=== PATIENT | female | born 1950 | race Caucasian/White ===

== ENCOUNTER 2020-02-17 06:49 | Inpatient (IN) | payer MEDICARE, MEDICAID ==
[~2020-02-17] VITALS: Ht 167.6 cm; Wt 68.0 kg
[2020-02-17 07:25] LABS: HEMATOCRIT. 32.9 % (36.0-48.0); HEMOGLOBIN. 11.7 g/dL (12.0-16.0); LYMPHOCYTES % 22.5 % (20.0-50.0); MEAN CORPUSCULAR HEMOGLOBIN 33.2 pg (28.0-32.0); MEAN CORPUSCULAR VOLUME 93.8 fL (81.0-99.0); MEAN PLATELET VOLUME 9.1 fl (7.4-10.4); MONOCYTES % 10.1 % (2.0-8.0); NEUTROPHILS % 63.4 % (40.0-76.0); PLATELET 73 x1000/uL (130-400); RED BLOOD CELL COUNT 3.51 mill/uL (4.2-5.4)
[2020-02-17 07:36] LABS: CHLORIDE 107 mEq/L (98-107)
[2020-02-17 07:44] LABS: ETHANOL BLOOD < 10 mg/dL
[2020-02-17 07:45] LABS: LDL CHOLESTEROL 67 mg/dL (5-100)
[2020-02-17 07:46] LABS: CREATINE KINASE 80 IU/L (26-192)
[2020-02-17 07:52] LABS: INR 1.3; PROTHROMBIN TIME 13.7 sec (9.6-11.0)
[2020-02-17 08:11] LABS: CLARITY URINE CLEAR (CLEAR); COLOR URINE YELLOW (YELLOW); KETONES URINE NEGATIVE (NEGATIVE); LEUKOCYTE ESTERASE URINE TRACE (NEGATIVE); NITRITE URINE NEGATIVE (NEGATIVE); OCCULT BLOOD URINE NEGATIVE (NEGATIVE); PH URINE 8.5 (4.5-8.0); PROTEIN URINE NEGATIVE (NEGATIVE); SPECIFIC GRAVITY URINE 1.011 (1.005-1.030); UROBILINOGEN URINE 0.2 E.U./dL (0.2-1.0)
[2020-02-17 08:30] LABS: *AMPHETAMINES SCREEN URINE NEGATIVE (NEGATIVE); *BARBITURATES SCREEN URINE NEGATIVE (NEGATIVE); *BENZODIAZEPINES SCREEN URINE NEGATIVE (NEGATIVE)
[2020-02-17 08:31] LABS: *COCAINE SCREEN URINE NEGATIVE (NEGATIVE); CANNABINOID URINE SCREEN NEGATIVE (NEGATIVE); METHADONE URINE SCREEN NEGATIVE (NEGATIVE); OPIATES URINE SCREEN NEGATIVE (NEGATIVE); PHENCYCLIDINE URINE SCREEN NEGATIVE (NEGATIVE)
[2020-02-17 08:59] LABS: BG CARBOXYHEMOGLOBIN 0.3 % (0.5-1.5); BG DEOXYHEMOGLOBIN 1.8 % (0.0-5.0); BG FRACTION INSPIRED OXYGEN 21; BG HCO3 ACT 17.8 mmol/L (22.0-26.0); BG METHEMOGLOBIN 0.3 % (0.0-1.5); BG OXYGEN SATURATION 98.2 % (92.0-98.5); BG OXYHEMOGLOBIN 97.6 % (94.0-97.0); BG PCO2 23.9 mmHg (35.0-45.0); BG PO2 112.5 mmHg (75.0-100.0); BG SAMPLE SITE RIGHT RADIAL; BG TOTAL HEMOGLOBIN 11.7 g/dL (12.0-18.0); BG VENT MODE ROOM AIR
[2020-02-17 13:42] VITALS: BP 157/73
[2020-02-17 13:49] VITALS: BP 157/73
[2020-02-17] MEDS ORDERED: HYDRALAZINE 20MG/ML VIAL IV PRN (14:30)
[2020-02-17] MEDS: DEXT 5%/0.9% NACL 1,000 ML IV SCH (15:24)
[2020-02-17] MEDS: LACTULOSE 20G/30ML UDC PO SCH ×2 (15:56→22:19)
[2020-02-17 16:00] VITALS: BP 150/65
[2020-02-17] MEDS ORDERED: CEFTRIAXONE 1 G PREMIX 50 ML IV SCH (16:00)
[2020-02-17] MEDS ORDERED: FURO20TA4 PO (17:14)
[2020-02-17] MEDS ORDERED: LABE100T5 PO (17:14)
[2020-02-17] MEDS ORDERED: VALS1TAB80 PO (17:14)
[2020-02-17] MEDS ORDERED: SPIR25TA6 PO (17:14)
[2020-02-17] MEDS ORDERED: LACT10SO7 PO (17:14)
[2020-02-17] MEDS ORDERED: OMEP20CA14 PO (17:14)
[2020-02-17 18:00] VITALS: BP 164/76
[2020-02-17] MEDS ORDERED: LACTULOSE 20G/30ML UDC PO SCH (18:00)
[2020-02-17 20:00] VITALS: BP 130/83
[2020-02-17 22:00] VITALS: BP 148/76
[2020-02-18] VITALS (9 sets, daily range): BP systolic 106–131; BP diastolic 57–80
[2020-02-18] MEDS: LACTULOSE 20G/30ML UDC PO SCH ×4 (00:19→12:32)
[2020-02-18 06:07] LABS: BASOPHILS % 0.6 % (0.0-2.0); HEMATOCRIT. 30.7 % (36.0-48.0); LYMPHOCYTES % 20.1 % (20.0-50.0); MEAN CORPUSCULAR HEMOGLOBIN 33.6 pg (28.0-32.0); MEAN CORPUSCULAR VOLUME 93.5 fL (81.0-99.0); MEAN PLATELET VOLUME 9.2 fl (7.4-10.4); MONOCYTES % 12.5 % (2.0-8.0); NEUTROPHILS % 63.8 % (40.0-76.0); PLATELET 61 x1000/uL (130-400); RED BLOOD CELL COUNT 3.28 mill/uL (4.2-5.4); RED CELL DISTRIBUTION WIDTH 14.8 % (11.6-14.6)
[2020-02-18] MEDS: DEXT 5%/0.9% NACL 1,000 ML IV SCH (06:13)
[2020-02-18] MEDS ORDERED: CEFTRIAXONE 1,000 MG in DEXTROSE 5% WATER 50 ML IV SCH ×2 (11:00→16:00)
== END 2020-02-18 16:33 | disposition home or self-care (01) | DRG 441 ==
LOC: ER 07:30 → EDBEDREQ 08:47 → EDBEDREQTM 08:47 → ENRESERV 10:41 → 5EST 14:11
PROVIDERS: ADMIT Family Medicine; ATTEND Family Medicine
DX: K72.90 Hepatic failure, unspecified without coma (principal); G92 Toxic encephalopathy; E44.0 Moderate protein-calorie malnutrition; K74.60 Unspecified cirrhosis of liver; I10 Essential (primary) hypertension; R73.9 Hyperglycemia, unspecified; D69.59 Other secondary thrombocytopenia; Z68.24 Body mass index [BMI] 24.0-24.9, adult
CPT/HCPCS: 36415; 36600; 71045; 80048; 80053; 80305; 80320; 81003; 82140; 82375; 82550; 82805; 82962; 83721; 84484; 85025; 93005; 93970; 99291; J0696; J7042; J7060; G0480

== ENCOUNTER 2020-03-14 01:23 | Inpatient (IN) | payer MEDICARE, MEDICAID ==
[~2020-03-14] VITALS: Ht 165.1 cm; Wt 78.7 kg
[~2020-03-14 01:23] MED LIST: FURO20TA4 PO; LABE100T5 PO; LACT10SO7 PO; OMEP20CA14 PO; SPIR25TA6 PO; VALS1TAB80 PO
[2020-03-14] MEDS ORDERED: ONDANSETRON HCL 4MG/2ML INJ IV STA (01:40)
[2020-03-14] MEDS ORDERED: SODIUM CHLORIDE 0.9% 1,000 ML IV ONE (01:40)
[2020-03-14 02:00] LABS: CHLORIDE 110 mEq/L (98-107)
[2020-03-14 02:02] LABS: INR 1.3; PROTHROMBIN TIME 13.9 sec (9.6-11.0)
[2020-03-14 02:05] LABS: BASOPHILS % 0.9 % (0.0-2.0); EOSINOPHILS % 2.7 % (0.0-5.0); HEMATOCRIT. 33.4 % (36.0-48.0); HEMOGLOBIN. 11.9 g/dL (12.0-16.0); LYMPHOCYTES % 28.5 % (20.0-50.0); MEAN CORPUSCULAR VOLUME 95.4 fL (81.0-99.0); MEAN PLATELET VOLUME 9.8 fl (7.4-10.4); MONOCYTES % 11.2 % (2.0-8.0); NEUTROPHILS % 56.7 % (40.0-76.0); PLATELET 72 x1000/uL (130-400); RED CELL DISTRIBUTION WIDTH 14.6 % (11.6-14.6)
[2020-03-14 02:06] LABS: ETHANOL BLOOD < 10 mg/dL
[2020-03-14] MEDS ORDERED: LACTULOSE 300 ML in WATER FOR IRRIGATION,STERILE 700 ML IR ONE (03:15)
[2020-03-14] MEDS ORDERED: MORPHINE SULFATE 2 MG/ML CPJ (NOT FOR IM USE) IV ONE (04:30)
[2020-03-14 04:59] LABS: BG BASE EXCESS -7.5 mmol/L (-2.0-2.0); BG CARBOXYHEMOGLOBIN 0.3 % (0.5-1.5); BG DEOXYHEMOGLOBIN 2.2 % (0.0-5.0); BG FRACTION INSPIRED OXYGEN 21; BG HCO3 ACT 15.1 mmol/L (22.0-26.0); BG METHEMOGLOBIN 0.3 % (0.0-1.5); BG OXYGEN SATURATION 97.8 % (92.0-98.5); BG OXYHEMOGLOBIN 97.2 % (94.0-97.0); BG PCO2 23.3 mmHg (35.0-45.0); BG PH 7.429 (7.350-7.450); BG PO2 113.1 mmHg (75.0-100.0); BG SAMPLE SITE RIGHT RADIAL; BG TOTAL HEMOGLOBIN 11.9 g/dL (12.0-18.0); BG VENT MODE ROOM AIR
[2020-03-14 05:30] LABS: CLARITY URINE CLEAR (CLEAR); COLOR URINE YELLOW (YELLOW); KETONES URINE NEGATIVE (NEGATIVE); LEUKOCYTE ESTERASE URINE NEGATIVE (NEGATIVE); NITRITE URINE NEGATIVE (NEGATIVE); OCCULT BLOOD URINE NEGATIVE (NEGATIVE); PH URINE 7.5 (4.5-8.0); PROTEIN URINE NEGATIVE (NEGATIVE); SPECIFIC GRAVITY URINE 1.008 (1.005-1.030); UROBILINOGEN URINE 0.2 E.U./dL (0.2-1.0)
[2020-03-14 05:40] LABS: *AMPHETAMINES SCREEN URINE NEGATIVE (NEGATIVE); *BARBITURATES SCREEN URINE NEGATIVE (NEGATIVE); *BENZODIAZEPINES SCREEN URINE NEGATIVE (NEGATIVE); *COCAINE SCREEN URINE NEGATIVE (NEGATIVE); METHADONE URINE SCREEN NEGATIVE (NEGATIVE); OPIATES URINE SCREEN NEGATIVE (NEGATIVE); PHENCYCLIDINE URINE SCREEN NEGATIVE (NEGATIVE)
[2020-03-14 05:41] LABS: CANNABINOID URINE SCREEN NEGATIVE (NEGATIVE)
[2020-03-14] MEDS ORDERED: NA PHOS,M-B/NA PHOS,DI-BA ENEMA 118ML PR PRN (12:00)
[2020-03-14] MEDS ORDERED: MAGNESIUM/ALUMINUM HYDROXIDE/SIMETHICONE 30ML UDC PO PRN (12:00)
[2020-03-14] MEDS ORDERED: HYDROCODONE/ACETAMINOPHEN 5/325MG TABLET PO PRN (12:00)
[2020-03-14] MEDS ORDERED: DOCUSATE SODIUM 100MG CAPSULE PO PRN (12:00)
[2020-03-14] MEDS ORDERED: IPRATROPIUM/ALBUTEROL 0.5-3(2.5)MG/3ML NEB NEB PRN (12:00)
[2020-03-14] MEDS ORDERED: ACETAMINOPHEN 650MG SUPP PR PRN (12:00)
[2020-03-14] MEDS ORDERED: CLONIDINE 0.1MG TABLET PO PRN (12:00)
[2020-03-14] MEDS ORDERED: GUAIFENESIN 200MG/10ML SUGAR FREE UDC PO PRN (12:00)
[2020-03-14] MEDS ORDERED: ONDANSETRON HCL 4MG/2ML INJ IV PRN (12:00)
[2020-03-14] MEDS ORDERED: LORAZEPAM 0.5MG TABLET PO PRN (12:00)
[2020-03-14] MEDS ORDERED: ACETAMINOPHEN 325MG TABLET PO PRN (12:00)
[2020-03-14] MEDS ORDERED: DIPHENHYDRAMINE 50MG/ML VIAL IV PRN (12:00)
[2020-03-14 12:43] LABS: HEPATITIS B SURFACE ANTIGEN NEGATIVE
[2020-03-14] MEDS: LACTULOSE 20G/30ML UDC PO SCH ×3 (13:11→23:36)
[2020-03-14 13:13] LABS: HEPATITIS A AB IGM NEGATIVE (NEGATIVE)
[2020-03-14] MEDS: PANTOPRAZOLE 40MG DR TABLET PO SCH ×2 (13:13→22:41)
[2020-03-14 22:00] VITALS: BP 117/56
[2020-03-14 23:07] VITALS: BP 117/56
[2020-03-15] VITALS: BP 131/64
[2020-03-15 04:00] VITALS: BP 113/81
[2020-03-15] MEDS: LACTULOSE 20G/30ML UDC PO SCH ×3 (05:06→18:00)
[2020-03-15 06:03] LABS: BASOPHILS % 0.4 % (0.0-2.0); EOSINOPHILS % 2.7 % (0.0-5.0); HEMATOCRIT. 33.3 % (36.0-48.0); HEMOGLOBIN. 11.6 g/dL (12.0-16.0); LYMPHOCYTES % 22.9 % (20.0-50.0); MEAN CORPUSCULAR HEMOGLOBIN 34.3 pg (28.0-32.0); MEAN PLATELET VOLUME 10.6 fl (7.4-10.4); MONOCYTES % 9.1 % (2.0-8.0); NEUTROPHILS % 64.9 % (40.0-76.0); PLATELET 59 x1000/uL (130-400); RED BLOOD CELL COUNT 3.39 mill/uL (4.2-5.4); RED CELL DISTRIBUTION WIDTH 14.5 % (11.6-14.6)
[2020-03-15 06:13] LABS: CHLORIDE 114 mEq/L (98-107)
[2020-03-15 06:20] LABS: LDL CHOLESTEROL 66 mg/dL (5-100)
[2020-03-15 06:21] LABS: HDL CHOLESTEROL 77 mg/dL (40-59)
[2020-03-15] MEDS: PANTOPRAZOLE 40MG DR TABLET PO SCH (06:31)
[2020-03-15 08:00] VITALS: BP 108/58
[2020-03-15] MEDS ORDERED: SPIRONOLACTONE 25MG TABLET PO SCH (09:00)
[2020-03-15] MEDS ORDERED: FUROSEMIDE 20MG TABLET PO SCH (09:00)
[2020-03-15] MEDS: PROPRANOLOL HCL 10MG TABLET PO SCH ×3 (11:00→16:39)
[2020-03-15] MEDS ORDERED: RIFAXIMIN 550 MG TABLET PO SCH (11:00)
[2020-03-15 12:00] VITALS: BP 108/60
[2020-03-15] MEDS ORDERED: PROP10TA10 MT (14:49)
[2020-03-15] MEDS ORDERED: SPIR25TA6 MT (14:49)
[2020-03-15] MEDS ORDERED: FURO-152 MT (14:49)
[2020-03-15] MEDS ORDERED: RIFA550T MT (14:49)
[2020-03-15] MEDS ORDERED: LACT10SO7 MT (14:49)
[2020-03-15] MEDS ORDERED: BLOO1KIT74 TP (14:49)
[2020-03-15 16:00] VITALS: BP 90/51
[2020-03-15] MEDS ORDERED: MIDODRINE HCL 5MG TABLET PO NR (17:00)
[2020-03-15 17:22] VITALS: BP 90/51
== END 2020-03-15 19:35 | disposition home or self-care (01) | DRG 442 ==
LOC: ER 01:23 → 6WST 04:28 → EDBEDREQ 04:31 → EDBEDREQTM 04:31 → SUPCPDRO 10:45 → ENRESERV 20:44
PROVIDERS: ADMIT Internal Medicine; ATTEND Internal Medicine
DX: K72.00 Acute and subacute hepatic failure without coma (principal); D61.818 Other pancytopenia; I85.10 Secondary esophageal varices without bleeding; E88.09 Other disorders of plasma-protein metabolism, not elsewhere classified; I10 Essential (primary) hypertension; K74.60 Unspecified cirrhosis of liver; N32.89 Other specified disorders of bladder; R16.1 Splenomegaly, not elsewhere classified; R33.9 Retention of urine, unspecified; K59.00 Constipation, unspecified; R73.9 Hyperglycemia, unspecified; Z79.899 Other long term (current) drug therapy
CPT/HCPCS: 36415; 36600; 71045; 74176; 76705; 80053; 80061; 80305; 80307; 80320; 80329; 81003; 82140; 82375; 82805; 82962; 83605; 84439; 84443; 84484; 85025; 86705; 86709; 86803; 87340; 93005; 93306; 97162; 99291; J2270; J2405; J7030; G0480

== ENCOUNTER 2020-03-16 08:02 | Inpatient (IN) | payer MEDICARE, MEDICAID ==
[~2020-03-16] VITALS: Ht 167.6 cm; Wt 69.0 kg
[~2020-03-16 08:02] MED LIST changes: +BLOO1KIT74 TP; +FURO-152 MT; -LABE100T5 PO; +LACT10SO7 MT; -LACT10SO7 PO; +RIFA550T MT; +SPIR25TA6 MT; -VALS1TAB80 PO
[2020-03-16 09:18] LABS: CHLORIDE 108 mEq/L (98-107)
[2020-03-16 09:22] LABS: ETHANOL BLOOD < 10 mg/dL
[2020-03-16 09:46] LABS: BASOPHILS % 0.5 % (0.0-2.0); HEMATOCRIT. 34.2 % (36.0-48.0); HEMOGLOBIN. 12.2 g/dL (12.0-16.0); LYMPHOCYTES % 19.8 % (20.0-50.0); MEAN CORPUSCULAR HEMOGLOBIN 34.2 pg (28.0-32.0); MEAN CORPUSCULAR VOLUME 95.9 fL (81.0-99.0); MEAN PLATELET VOLUME 9.2 fl (7.4-10.4); MONOCYTES % 7.6 % (2.0-8.0); NEUTROPHILS % 70.1 % (40.0-76.0); PLATELET 70 x1000/uL (130-400); RED BLOOD CELL COUNT 3.57 mill/uL (4.2-5.4); RED CELL DISTRIBUTION WIDTH 13.9 % (11.6-14.6)
[2020-03-16] MEDS ORDERED: SODIUM CHLORIDE 0.9% 1,000 ML IV ONE (09:59)
[2020-03-16] MEDS ORDERED: LACTULOSE 20G/30ML UDC PO ONE (10:00)
[2020-03-16 10:29] LABS: BG BASE EXCESS -6.1 mmol/L (-2.0-2.0); BG CARBOXYHEMOGLOBIN 0.4 % (0.5-1.5); BG DEOXYHEMOGLOBIN 1.7 % (0.0-5.0); BG FRACTION INSPIRED OXYGEN 21; BG HCO3 ACT 16.6 mmol/L (22.0-26.0); BG METHEMOGLOBIN 0.1 % (0.0-1.5); BG OXYGEN SATURATION 98.3 % (92.0-98.5); BG OXYHEMOGLOBIN 97.8 % (94.0-97.0); BG PCO2 25.2 mmHg (35.0-45.0); BG PH 7.436 (7.350-7.450); BG PO2 120.2 mmHg (75.0-100.0); BG SAMPLE SITE RIGHT BRACHIAL; BG VENT MODE ROOM AIR
[2020-03-16] MEDS ORDERED: LACTULOSE 20G/30ML UDC PO NR (16:15)
[2020-03-16 16:33] VITALS: BP 138/64
[2020-03-16] MEDS ORDERED: CLONIDINE 0.1MG TABLET PO PRN (17:45)
[2020-03-16] MEDS ORDERED: ACETAMINOPHEN 325MG TABLET PO PRN ×2 (17:45)
[2020-03-16] MEDS ORDERED: ONDANSETRON HCL 4MG/2ML INJ IV PRN (17:45)
[2020-03-16] MEDS: LACTULOSE 20G/30ML UDC PO SCH (18:28)
[2020-03-16] MEDS: PROPRANOLOL HCL 10MG TABLET PO SCH (18:28)
[2020-03-16 20:00] VITALS: BP 130/72
[2020-03-16] MEDS ORDERED: LACTULOSE 20G/30ML UDC PO SCH (22:00)
[2020-03-16] MEDS: SODIUM CHLORIDE 0.9% INJ 3ML FLUSH IVF SCH (22:18)
[2020-03-16] MEDS: RIFAXIMIN 550 MG TABLET PO SCH (22:18)
[2020-03-17] VITALS: BP 131/71
[2020-03-17] MEDS: LACTULOSE 20G/30ML UDC PO SCH ×3 (00:27→13:24)
[2020-03-17 04:00] VITALS: BP 143/61
[2020-03-17] MEDS: PROPRANOLOL HCL 10MG TABLET PO SCH ×2 (04:13→08:47)
[2020-03-17] MEDS: SODIUM CHLORIDE 0.9% INJ 3ML FLUSH IVF SCH (06:32)
[2020-03-17 08:00] VITALS: BP 129/69
[2020-03-17] MEDS: RIFAXIMIN 550 MG TABLET PO SCH (08:46)
[2020-03-17] MEDS ORDERED: SPIRONOLACTONE 25MG TABLET PO SCH (09:00)
[2020-03-17 12:00] VITALS: BP 120/60
== END 2020-03-17 17:15 | disposition home or self-care (01) | DRG 443 ==
LOC: ER 08:02 → 6WST 10:02 → ENRESERV 14:21
PROVIDERS: ADMIT Internal Medicine; ATTEND Internal Medicine
DX: K72.00 Acute and subacute hepatic failure without coma (principal); K74.60 Unspecified cirrhosis of liver; I10 Essential (primary) hypertension
CPT/HCPCS: 36415; 36600; 71045; 80053; 80320; 82140; 82375; 82805; 82962; 84484; 85025; 93005; 99285; J7030; G0480